=== PATIENT | female | born 1945 | race Caucasian/White ===

== ENCOUNTER 2021-09-02 09:45 | Inpatient (IN) | payer MEDICARE, OTHER ==
[~2021-09-02] VITALS: Ht 160 cm; Wt 68.1 kg
[~2021-09-02 09:45] MED LIST: FELDENE10 MG PO
[2021-09-02 12:07] LABS: BASOPHIL 0.5 % (0-2); EOSINOPHIL 0.3 % (0-7); HCT 39.3 % (37.0-47.0); HGB 12.9 g/dl (12.5-16.0); LYMPHOCYTE 23.1 % (15-48); MCH 30.9 pg (25.0-31.0); MCHC 32.8 g/dL (32.0-36.0); MCV 94.2 fL (78.0-100.0); MPV 9.9 fL (6.0-9.5); NEUTROPHIL 69.8 % (41-80); NRBC 0; PLT 338 K/uL (150-400); RBC 4.17 M/uL (4.20-5.40); RDW 13.2 % (11.5-14.0); WBC 7.6 K/uL (4.0-10.5)
[2021-09-02 12:12] LABS: INR 1.05 (0.9-1.2); PROTHROMBIN TIME 13.1 SECONDS (11.8-13.4); PTT 34.2 SECONDS (24.4-34.7)
[2021-09-02 12:28] LABS: ALBUMIN 2.8 g/dL (3.4-5.0); BILIRUBIN - TOTAL 0.3 mg/dL (0.2-1.0); BUN/CREAT RATIO (CALC) 22.8 RATIO; C-REACTIVE PROTEIN 4.6 mg/dL (<=0.90); CREATININE 0.57 mg/dL (0.51-0.95); GLOBULIN (CALCULATION) 4.2 g/dL; MAGNESIUM 1.2 mg/dL (1.8-2.4)
[2021-09-02 12:43] LABS: LACTIC ACID 1.4 mmol/L (0.4-1.9)
[2021-09-02 15:13] LABS: BILIRUBIN NEGATIVE (NEGATIVE); BLOOD NEGATIVE Ery/uL (NEGATIVE); CLARITY CLEAR (CLEAR); COLOR YELLOW (YELLOW); GLUCOSE (U) NORMAL (NORMAL); LEUKOCYTES NEGATIVE Leu/uL (NEGATIVE); NITRITE NEGATIVE (NEGATIVE); PROTEIN NEGATIVE (NEGATIVE); SPECIFIC GRAVITY <=1.005 (1.001-1.030); UROBILINOGEN 0.2 mg/dL (0.2-1.0); pH 5.5 (5.0-9.0)
[2021-09-02] MEDS ORDERED: METFORMIN HCL500 MG PO (17:54)
[2021-09-02] MEDS ORDERED: PRINIVIL10 MG PO (17:55)
[2021-09-02] MEDS ORDERED: FLEXERIL5 MG PO (17:55)
[2021-09-02] MEDS ORDERED: TRAZODONE 50MG50 MG PO (17:56)
[2021-09-02] MEDS ORDERED: LOPRESSOR25 MG PO (17:56)
[2021-09-02] MEDS ORDERED: CYMBALTA 30MG C30 MG PO (17:57)
[2021-09-03 07:25] LABS: BASOPHIL 0.2 % (0-2); EOSINOPHIL 0 % (0-7); HCT 36.8 % (37.0-47.0); LYMPHOCYTE 19.2 % (15-48); MCH 31.1 pg (25.0-31.0); MCHC 32.6 g/dL (32.0-36.0); MCV 95.3 fL (78.0-100.0); MONOCYTE 5.9 % (0-12); MPV 10.4 fL (6.0-9.5); NEUTROPHIL 74.2 % (41-80); NRBC 0; PLT 351 K/uL (150-400); RBC 3.86 M/uL (4.20-5.40); RDW 13.2 % (11.5-14.0)
[2021-09-03 08:09] LABS: ALBUMIN 2.7 g/dL (3.4-5.0); BILIRUBIN - TOTAL 0.2 mg/dL (0.2-1.0); BUN/CREAT RATIO (CALC) 27.9 RATIO; CREATININE 0.61 mg/dL (0.51-0.95); GLOBULIN (CALCULATION) 3.9 g/dL; POTASSIUM 5.3 mmol/L (3.5-5.1); TOTAL PROTEIN 6.6 g/dL (6.4-8.2)
[2021-09-03 08:10] LABS: MAGNESIUM 1.9 mg/dL (1.8-2.4)
[2021-09-03 21:33] LABS: BUN/CREAT RATIO (CALC) 43.4 RATIO; CREATININE 0.53 mg/dL (0.51-0.95); POTASSIUM 4.9 mmol/L (3.5-5.1)
[2021-09-04 05:57] LABS: BASOPHIL 0.1 % (0-2); EOSINOPHIL 0 % (0-7); HCT 34.9 % (37.0-47.0); HGB 11.4 g/dl (12.5-16.0); LYMPHOCYTE 22.7 % (15-48); MCH 31.2 pg (25.0-31.0); MCHC 32.7 g/dL (32.0-36.0); MCV 95.6 fL (78.0-100.0); MONOCYTE 8.6 % (0-12); NEUTROPHIL 68.2 % (41-80); NRBC 0; PLT 321 K/uL (150-400); RBC 3.65 M/uL (4.20-5.40); RDW 13.2 % (11.5-14.0); WBC 7.9 K/uL (4.0-10.5)
[2021-09-04 06:14] LABS: BUN/CREAT RATIO (CALC) 41.1 RATIO; CREATININE 0.56 mg/dL (0.51-0.95); POTASSIUM 4.8 mmol/L (3.5-5.1)
--- NOTE | 2021-09-04 13:36 | NUR ---
10/05/21 Ms. Hernandez lives at [facility]. She does not use any DME. Ms. Hernandez has a son, [id number], and friends who are supportvie and provide transportation. Ms. Hernandez chose [employer] to supply 02 at discharge.
[2021-09-05 06:20] LABS: BASOPHIL 0.1 % (0-2); EOSINOPHIL 0.1 % (0-7); HCT 39.3 % (37.0-47.0); HGB 12.8 g/dl (12.5-16.0); LYMPHOCYTE 24.9 % (15-48); MCH 31.1 pg (25.0-31.0); MCHC 32.6 g/dL (32.0-36.0); MCV 95.4 fL (78.0-100.0); MPV 9.9 fL (6.0-9.5); NEUTROPHIL 66.5 % (41-80); NRBC 0; PLT 367 K/uL (150-400); RBC 4.12 M/uL (4.20-5.40); WBC 7.4 K/uL (4.0-10.5)
[2021-09-05 06:38] LABS: BUN/CREAT RATIO (CALC) 35.7 RATIO; CREATININE 0.56 mg/dL (0.51-0.95); POTASSIUM 4.5 mmol/L (3.5-5.1)
[2021-09-06 06:06] LABS: BASOPHIL 0.3 % (0-2); EOSINOPHIL 0.2 % (0-7); HCT 39.5 % (37.0-47.0); HGB 13.3 g/dl (12.5-16.0); LYMPHOCYTE 31.8 % (15-48); MCH 31.4 pg (25.0-31.0); MCHC 33.7 g/dL (32.0-36.0); MCV 93.4 fL (78.0-100.0); MONOCYTE 11.4 % (0-12); NEUTROPHIL 56.1 % (41-80); NRBC 0; PLT 337 K/uL (150-400); RBC 4.23 M/uL (4.20-5.40); WBC 5.9 K/uL (4.0-10.5)
[2021-09-06 06:26] LABS: BUN/CREAT RATIO (CALC) 31.1 RATIO; CREATININE 0.61 mg/dL (0.51-0.95); POTASSIUM 4.7 mmol/L (3.5-5.1)
[2021-09-06] MEDS ORDERED: DEXAMETHASONE 2M2 MG PO (11:44)
[2021-09-06] MEDS ORDERED: ELIQUIS5 MG PO (11:44)
[2021-09-07] MEDS ORDERED: DEXAMETHASONE 2M2 MG PO (12:43)
== END 2021-09-07 16:20 | disposition home or self-care (01) | DRG 177 ==
LOC: FER 09:45 → FMS 16:07
PROVIDERS: Emergency Medicine; Family Medicine; Internal Medicine; ADMIT Internal Medicine
PROC: XW033E5 Introduction of Remdesivir Anti-infective into Peripheral Vein, Percutaneous Approach, New Technology Group 5 (ICD-10-PCS; principal; 2021-09-02)
PROC: 8E0ZXY6 Isolation (ICD-10-PCS; 2021-09-02)
DX: U07.1 COVID-19 (principal); J12.82 Pneumonia due to coronavirus disease 2019; J96.01 Acute respiratory failure with hypoxia; Q25.1 Coarctation of aorta; I74.11 Embolism and thrombosis of thoracic aorta; I71.2 Thoracic aortic aneurysm, without rupture; E83.42 Hypomagnesemia; I10 Essential (primary) hypertension; E87.5 Hyperkalemia; F32.A Depression, unspecified; E11.65 Type 2 diabetes mellitus with hyperglycemia; T38.0X5A Adverse effect of glucocorticoids and synthetic analogues, initial encounter; Z99.81 Dependence on supplemental oxygen; Z79.84 Long term (current) use of oral hypoglycemic drugs; Z79.899 Other long term (current) drug therapy; Z90.710 Acquired absence of both cervix and uterus
CPT/HCPCS: 36415; 36600; 71275; 80048; 80053; 80061; 81003; 82728; 82803; 83605; 83615; 83735; 83880; 84145; 84484; 85025; 85379; 85610; 85730; 86140; 86141; 93005; 94667; 94668; C9399; J1100; J1650; J1815; J3475; J7050; J8540; Q9967; U0002